=== PATIENT | male | born 2000 | race Caucasian/White ===

== ENCOUNTER 2021-08-29 12:01 | Emergency (ER) | payer OTHER ==
[~2021-08-29] VITALS: Ht 195 cm; Wt 78.0 kg
--- NOTE | 2021-08-29 12:56 | Diagnostic Imaging Report ---
KNEE, RIGHT, 3 VIEWS COMPARISON: None available. INDICATION: Right knee pain TECHNIQUE: Non-weight bearing AP, oblique, and lateral views of the right knee. FINDINGS: No fracture or traumatic malalignment. The joint spaces are well maintained. No knee joint effusion. IMPRESSION: No acute osseous abnormality about the right knee. Dictated by: Dictated on workstation # [id number]
--- NOTE | 2021-08-29 12:58 | Diagnostic Imaging Report ---
HIP, RIGHT, 2 VIEWS INDICATION: Right hip pain from injury. COMPARISON: None available. TECHNIQUE: Two views of the right hip. FINDINGS: No acute or healing fracture. Diminished femoral head-neck offset with an osseous bump at the femoral head-neck junction gives a cam morphology which can predispose to femoroacetabular impingement. Joint space of the right hip is well maintained. No abnormal soft tissue mineralization. IMPRESSION: 1. No acute fracture about the right hip. 2. Cam morphology of the proximal femur could predispose to femoroacetabular impingement. Dictated by: Dictated on workstation # [id number]
--- NOTE | 2021-08-29 12:59 | Diagnostic Imaging Report ---
INDICATION: Left wrist pain. AP, oblique, and lateral views of the left wrist are obtained. FINDINGS: No fracture or acute bony abnormality is seen. Joint spaces are unremarkable. IMPRESSION: Negative left wrist. Dictated by: Dictated on workstation # [id number]
--- NOTE | 2021-08-29 14:02 | Diagnostic Imaging Report ---
EXAMINATION: FOREARM, LEFT, 2 VIEWS. INDICATION: Left forearm pain. COMPARISON: None available. TECHNIQUE: Two views of the left forearm. FINDINGS: No fracture or periosteal reaction. No concerning focal osseous lesion. The wrist and elbow are in normal alignment. IMPRESSION: No fracture within the left forearm. Dictated by: Dictated on workstation # [id number]
--- NOTE | 2021-08-29 14:06 | ED Fall/Injury ---
General Chief Complaint: Upper Extremity Stated Complaint: L HAND PAIN Nursing Triage Note: PT CO OF L HAND AND WRIST PAIN FROM FALL OFF SKATEBOARD ON 08/27/21. PT HAS ABRASION NOTED ON PALM SIDE OF L HAND. Source: patient Exam Limitations: no limitations Past [id number] Hx Patient Social History Tobacco Use?: No Substance use?: No Alcohol Use?: No Pt feels they are or have been: No Physical Exam Vital Signs Vital Signs - First Documented 08/29/21 12:16 Temp 37.1 Pulse 83 Resp 18 B/P (MAP) 136/85 (102) Pulse Ox 99 Capillary Refill : Less Than 3 Seconds Height, Weight, BMI Height: '" Weight: lbs. oz. kg; 20.00 BMI Method: Progress/Results/Core Measures Results/Orders My Orders Orders - JASMIN REYNOSO MD Wrist, Left, 3 Views Or More (08/29/21 12:23) Knee, Right, 3 Views (08/29/21 12:23) Hip, Right, 2 Views (08/29/21 12:23) Forearm, Left, 2 Views (08/29/21 13:07) Vital Signs/I&O 08/29/21 12:16 Temp 37.1 Pulse 83 Resp 18 B/P (MAP) 136/85 (102) Pulse Ox 99 Blood Pressure Mean: 102 Departure Impression Primary Impression: Fall from skateboard, initial encounter Additional Impressions: Contusion of right hip Qualified Codes: S70.01XA - Contusion of right hip, initial encounter Left wrist sprain Qualified Codes: S63.502A - Unspecified sprain of left wrist, initial encounter Disposition: 01 HOME, SELF-CARE Condition: Stable Departure-Patient Inst. Decision time for Depature: 14:05 Referrals: NO,LOCAL PHYSICIAN (PCP/Family) Primary Care Physician Patient Instructions: Contusion (DC), Wrist Sprain ED Add. Discharge Instructions: Use ibuprofen up to 600 mg every 6 hours and/or Tylenol (acetaminophen) up to 1000 mg every 6 hours as needed for pain. Icing in 20-minute intervals may also be helpful in reducing pain. You may use a wrist splint as needed for support of the left wrist. Gradually increase level of activity as pain allows. Return to care if you have worsening of symptoms or not improving as expected over the next few days. Call with questions or concerns. All discharge instructions reviewed with patient and/or family. Voiced understanding. JASMIN REYNOSO MD Aug 29, 2021 14:06
[2021-08-29 14:20] VITALS: BP 136/85
== END 2021-08-29 14:20 | disposition home or self-care (01) ==
LOC: ER 12:04
DX: S63.502A Unspecified sprain of left wrist, initial encounter (principal); S70.01XA Contusion of right hip, initial encounter; V00.131A Fall from skateboard, initial encounter
CPT/HCPCS: 73090; 73110; 73502; 73562